=== PATIENT | male | born 1990 | race Caucasian/White ===

== ENCOUNTER 2019-09-08 13:54 | Outpatient (RCR) | payer OTHER, SELFPAY ==
--- NOTE | 2019-09-08 15:27 | PTOPEVAL ---
Thank you for referring this patient to [facility]. Please review, sign, date and return this plan of care ZACHARIAH. I agree with and certify that the following plan of care is medically necessary. Referring Physician Date Admitting Provider: Attending Provider: PHYSICIAN NOT ON STAFF Referring Provider: *PT Outpatient Evaluation Start: 09/08/19 14:08 Freq: Status: Active Protocol: Document 09/08/19 14:08 LUIS (Rec: 09/08/19 14:37 LUIS [id number]) Therapy Assessment Status Assessment Status Assessment Status Evaluation Evaluation Information Problem Diagnosis lumbar pain, L5-S1 fusion Onset 07/09/19 Subjective Information Pt. reports that he initially Query Text:As Reported By Patient/ injured his back after falling Family at work on 07/29/18. He reports that 1 year later underwent spinal surgery to fuse the lower spine. He states that pain is less intense since surgery and feels he can walk longer. He reports that all pain is currently localized and states that he did have pain in the l.e. before surgery but no longer. 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 Prior Level of Function Activity Level (Last 3 Months) Hand Dominance Right Activity of Daily Living Ability Independent Indoor/Home Mobility Independent Community Mobility Independent Stairs Ability Independent Functional Cognition (Planning, Shopping Independent , Taking Medications) Cooking Yes Cleaning Yes Laundry Yes Shopping Yes Driving Yes Comments Additional Prior Level of Function Pt. reports that he is Comments avoiding any heavy lifting. He reports that he has a current 10# weight restriction . Pain Assessment Timing of Pain Assessment Timing of Pain Assessment Pre-Treatment Pain Scale Pain Scale Used Numeric (1 - 10) Self Report Pain Assessment Lower Back Reported Pain Level 4 Pain Description Spasms,Stabbing Current Pain Intensity 4 Lowest Pain Intensity
--- NOTE | 2019-09-17 17:04 | PCPTNOTE ---
patient called and cancelled appt today due to sick child. john
--- NOTE | 2019-10-10 16:46 | PTOPEVAL ---
Thank you for referring this patient to [facility]. Please review, sign, date and return this plan of care ZACHARIAH. I agree with and certify that the following plan of care is medically necessary. Referring Physician Date Admitting Provider: Attending Provider: PHYSICIAN NOT ON STAFF Referring Provider: *PT Outpatient Evaluation Start: 09/08/19 14:08 Freq: Status: Active Protocol: Document 10/08/19 13:30 LUIS (Rec: 10/10/19 16:45 LUIS [email or web address]) Therapy Assessment Status Assessment Status Assessment Status Discharge Pain Assessment Pain Scale Pain Scale Used Numeric (1 - 10) Self Report Pain Assessment Lower Back Reported Pain Level 2 Greatest Pain Intensity 4 Pain Score Pain Score 2: Self Report Cervical and Lumbar Muscle Testing Lumbar Strength Upper Abdominal Strength 4 Good Lower Abdominal Strength 4-Good- Abdominal Obliques 4-Good- Upper Back Extension 3+Fair+ Lower Back Extension 3+Fair+ Lower Extremity Muscle Strength Testing General Lower Extremity Strength Gross Lower Extremity Strength bilateral hip flexion 5/5, bilateral knee extension 5/5, bialteral hip abduction 5/5, bilateral knee flexion 5/5, bilateral ankle dorsiflexion 5 /5 Muscle Length Testing Muscle Length Testing Piriformis w/Hip Flexion >90 Degrees (R) Mild Tightness,(L) Mild Tightness Left Hamstring Length 15 Query Text:(90 - 90 Position) Right Hamstring Length 13 Query Text:(90 - 90 Position) Gait Assessment Gait Assessment Additional Ambulation Comments Pt. ambulates over level surface without deviation. Pt . demonstrates safe body mechanics with lifting 32.5# from floor to waist in repition. He demonstrate verbal and physical knowledge of safe body mechanics. PT Clinical Summary Clinical Summary Protocol: PTEVCODE Clinical Summary Pt. has met the majority of goals established at the initial evaluation. He demonstrates safe lifting mechanics and is performing independent exercise at the gym away from rehab. At this time he has thorough education in safe body mechanics and
== END 2019-10-08 17:19 | disposition home or self-care (01) ==
LOC: CHSPT 13:54
DX: M54.5 Low back pain (principal)
CPT/HCPCS: 97110; 97161; 97530

== ENCOUNTER 2020-01-30 09:53 | Emergency (ER) | payer OTHER, SELFPAY ==
--- NOTE | ~2020-01-30 | CT_ITS ---
EXAMINATION: CT brain wo con DATE: 01/30/2020 10:52 INDICATION: Headache. TECHNIQUE: Computed tomography (CT) of the head was performed without intravenous contrast. The mA wa s adjusted according to patient size. Iterative reconstruction technique was employed. The dose-lengt h product was 681.00 mGy-cm. COMPARISON: None FINDINGS: There is no intracranial hemorrhage, acute infarction, or abnormal intracranial mass lesion . The ventricles are normal in size. There are mucous retention cysts in the maxillary sinuses. The m astoid air cells are normal. The orbits are normal. IMPRESSION: 1. Normal brain. Reviewed, dictated and finalized at location A. IMPRESSION: 1. Normal brain.
[2020-01-30 10:00] VITALS: BP 158/92; PULSE 90; RESP 20; TEMP 36.6; O2SAT 98
--- NOTE | 2020-01-30 10:10 | ED.BACK ---
HPI - Back Pain/Injury General Chief Complaint: Back Pain/Injury Stated Complaint: Vomiting, spinal cord headach Time Seen by Provider: 01/30/20 10:10 Source: patient Mode of arrival: ambulatory Limitations: no limitations History of Present Illness HPI Narrative: 29 year-old Scot comes in today complaining of a headache that gets worse with standing. He states his pain is 5/10 while the supine and 9 on a 10 while standing. Two days ago the patient had a CT myelogram for symptoms resulting from an injury of his lumbar spine 2 years ago. 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 He has had vomiting but no fever, new neurologic symptoms such as weakness, perineal numbness, change in vision, incontinence, change in level of consciousness, or difficulty walking. Patient states he has residual weakness and numbness in his left leg from his spinal injury and subsequent surgery. Procedure was ordered by Dr. Keny Washington at [facility] in [place] ([phone]) and the procedure was done at [facility] ([phone]). according the ladder, his redness fractions after the procedure were to call [facility] [phone]. MD elicited complaint: back pain Pertinent past history: prior back pain Timing: constant Severity: severe Similar Symptoms Previously: No Quality: aching Location: lumbar spine and thoracic spine Radiation: none Exacerbating factors: sitting upright Relieving factors: other (lying supine) Context: other (S/P CT myelogram) Associated symptoms: denies other symptoms Treatments prior to arrival: NSAIDS and acetaminophen Related Data Home Medications Medication Instructions Recorded Confirmed gabapentin 300 mg PO TID 01/30/20 01/30/20 Allergies Allergy/AdvReac Type Severity Reaction Status Date / Time No Known Allergies Allergy Verified 01/30/20 10:15 Review of Systems Constitutional: Constitutional: Denies chills, Denies fever(s) and Denies weakness Eyes: Eyes: Denies change in vision and Denies photophobia ENT: Denies dysphagia, Denies nasal congestion and Denies sore throat Cardiovascular: Cardiovascular: Denies chest pain and Denies radiating jaw, neck or arm pain Respiratory: Respiratory: Denies cough, Denies dyspnea and Denies wheezing Gastrointestinal: Gastrointestinal: Denies abdominal pain, Denies diarrhea, Denies nausea and Reports vomiting Genitourinary: Genitourinary: Denies dysuria, Denies urinary frequency and Denies urinary incontinence Musculoskeletal: Musculoskeletal: Reports back pain, Denies arthralgias, Denies joint swelling and Denies muscle cramps Integumentary/Breasts: Skin/Breast: Denies pruritus, Denies erythema and Denies rash Neurologic: Denies vertigo, Denies dizziness, Denies syncope and Denies focal weakness Psychiatric: Psychiatric: Denies anxiety and Denies depression Hematologic/Lymphatic: Hematologic/Lymphatic: Denies easy bleeding and Denies easy bruising Allergic/Immunologic: Allergic/Immunologic: Denies lip swelling and Denies wheezing PMFSH Surgical History Surgical History H/O lumbosacral spine surgery Social History Social History Smoking status: Never smoker Alcohol intake: never Substance use: never Living arrangements: with family Exam Const: General: healthy appearing and alert Orientation/consciousness: patient oriented x3 Limitations: no limitations Other: moderate acute distress HENMT: Mouth: Yes Normal oral and palatal mucosa present and Yes moist mucous membranes Eyes: Conjunctivae: conjunctivae normal Pupils: Equal, round and reactive pupils present EOM: EOMs intact bilaterally Resp: Effort & Inspection: normal respiratory effort and not labored Auscultation: clear to auscultation bilaterally, no rales, no rhonchi and no wheezes Cardio:
[2020-01-30] MEDS: HYDROMORPHONE HCL 2 MG/ML VIAL 0.5 MG IV PUSH (10:25)
[2020-01-30] MEDS: SODIUM CHLORIDE 0.9% IV 1,000 ML 999 ML IV CONT (10:25)
[2020-01-30] MEDS: ONDANSETRON INJ 4 MG/2 ML VIAL IV PUSH (10:25)
--- NOTE | 2020-01-30 10:54 | PC.NURSE ---
Report given to Brady Yen
[2020-01-30 11:26] VITALS: BP 137/77; PULSE 88; RESP 18; O2SAT 99
== END 2020-01-30 11:48 | disposition home or self-care (01) ==
LOC: CHSED 09:58
PROVIDERS: Emergency Provider Emergency Medicine; PCP Family Medicine
DX: G97.1 Other reaction to spinal and lumbar puncture (principal)
CPT/HCPCS: 70450; 96361; 96374; 96375; 99283; 99284; J1170; J2405; J7030

== ENCOUNTER 2021-06-27 09:58 | Outpatient (RCR) | payer OTHER, SELFPAY ==
--- NOTE | 2021-06-27 11:01 | PTOPEVAL ---
Thank you for referring Mingo Benito to [facility].? The patient is scheduled to be seen for therapy? ____x/week for ___ weeks. Please review, sign, date and return this plan of care ZACHARIAH. I agree with and certify that the following plan of care is medically necessary. Referring Physician Date Admitting Provider: Attending Provider: Catarina Foy, STEFANY Referring Provider: *PT Outpatient Evaluation Start: 06/27/21 09:54 Freq: Status: Active Protocol: Document 06/27/21 09:56 ACR (Rec: 06/27/21 11:01 ACR [id number]) Therapy Assessment Status Assessment Status Assessment Status Evaluation Outpatient Past Medical History Musculoskeletal History Hx Back Injury Yes Hx Back Pain Yes Hx Spinal Surgery Yes: x3 Evaluation Information Problem Diagnosis R arm strain and contusion of thoracic spine Onset 06/11/21 Subjective Information Patient states he was working, Query Text:As Reported By 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 When he was lifting it, it did not get out of the hinge and it bounced back at him which took the wind out of him . 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 He states that his shoulder isn't really bothering him as much as his neck and isn't sure if his neck is effecting his shoulder. Patient states he is on work restrictions where he cannot use your R arm or lift 20#. He states that he got an X-ray, which showed a broken rib. Patient states that his goal for therapy decrease pain and get back to full duty work. 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
--- NOTE | 2021-06-27 12:32 | PTOPEVAL ---
Thank you for referring Mingo Benito to [facility].? The patient is scheduled to be seen for therapy? ____x/week for ___ weeks. Please review, sign, date and return this plan of care ZACHARIAH. I agree with and certify that the following plan of care is medically necessary. Referring Physician Date Admitting Provider: Attending Provider: Catarina Foy, STEFANY Referring Provider: *PT Outpatient Evaluation Start: 06/27/21 09:54 Freq: Status: Active Protocol: Document 06/27/21 09:56 ACR (Rec: 06/27/21 11:01 ACR [email or web address]) Therapy Assessment Status Assessment Status Assessment Status Evaluation Outpatient Past Medical History Musculoskeletal History Hx Back Injury Yes Hx Back Pain Yes Hx Spinal Surgery Yes: x3 Evaluation Information Problem Diagnosis R arm strain and contusion of thoracic spine Onset 06/11/21 Subjective Information Patient states he was working, Query Text:As Reported By 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 When he was lifting it, it did not get out of the hinge and it bounced back at him which took the wind out of him . 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 He states that his shoulder isn't really bothering him as much as his neck and isn't sure if his neck is effecting his shoulder. Patient states he is on work restrictions where he cannot use your R arm or lift 20#. He states that he got an X-ray, which showed a broken rib. Patient states that his goal for therapy decrease pain and get back to full duty work. 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
--- NOTE | 2021-07-08 14:23 | PTOPEVAL ---
Thank you for referring Mingo Benito to [facility].? The patient is scheduled to be seen for therapy? ____x/week for ___ weeks. Please review, sign, date and return this plan of care ZACHARIAH. I agree with and certify that the following plan of care is medically necessary. Referring Physician Date Admitting Provider: Attending Provider: Catarina Foy, HEALTH RESEARCHER-BC Referring Provider: *PT Outpatient Evaluation Start: 06/27/21 09:54 Freq: Status: Active Protocol: Document 07/08/21 13:07 ACR (Rec: 07/08/21 14:22 ACR [email or web address]) Therapy Assessment Status Assessment Status Assessment Status Progress Outpatient Past Medical History Musculoskeletal History Hx Back Injury Yes Hx Back Pain Yes Hx Spinal Surgery Yes: x3 Evaluation Information Problem Diagnosis R arn strain and contusion of thoracic spine Onset 06/11/21 Subjective Information Patient reports that he is not Query Text:As Reported By Patient/ getting much better. He is Family starting to get a heaviness of his R shoulder. He states he is gettng no sleep at all because his shoulder is in so much pain. He continues to get the pain along his neck as well. Patient reports that he is starting to get constant burning down the arm with the tingling. Pain Assessment Timing of Pain Assessment Timing of Pain Assessment Assessment Pain Scale Pain Scale Used Numeric (1 - 10) Self Report Pain Assessment Neck Reported Pain Level 4 Greatest Pain Intensity 7 Right Shoulder(s) Reported Pain Level 4 Greatest Pain Intensity 7 Pain Score Pain Score 4,4: Self Report Interventions Used Interventions Used By Clinicians Activity or ADL's,Electrical Stimulation,Exercise,Heat Cervical and Lumbar ROM Cervical ROM Cervical Flexion (0-60) 43 Query Text:Active in Degrees Cervical Extension (0-70) 42 Query Text:Active in Degrees Cervical Lateral Flexion Right (0-50) 43 Query Text:Active in Degrees Cervical Lateral Flexion Left (0-50) 41 Query Text:Active in Degrees Cervical Rotation Right (0-90) 86 Query Text:Active in Degrees Cervical Rotation Left (0-90) 83 Query Text:Active in Degrees Upper Extremity Muscle Strength Testing General Upper Extremity Strength Gross Upper Extremity Strength Comments 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
== END 2021-07-08 23:59 | disposition home or self-care (01) ==
LOC: CHSPT 09:58
PROVIDERS: Visit Provider Nurse Practitioner
DX: S46.911A Strain of unspecified muscle, fascia and tendon at shoulder and upper arm level, right arm, initial encounter (principal); S20.229A Contusion of unspecified back wall of thorax, initial encounter
CPT/HCPCS: 97014; 97110; 97140; 97161; G0283

== ENCOUNTER 2021-11-25 12:27 | Emergency (ER) | payer OTHER, SELFPAY ==
--- NOTE | ~2021-11-25 | XR_ITS ---
XR chest 1V portable DATE: 11/25/2021 13:20 INDICATION: Chest pain, shortness of breath, dizziness. Tachycardia. TECHNIQUE: Portable AP chest on 11/25/2021 1321 hours COMPARISON: None FINDINGS: Normal heart size. No hilar or mediastinal enlargement. There is moderate elevation right leaf of the diaphragm. No pulmonary infiltrate or consolidation, pl eural effusion or pulmonary vascular congestion or pneumothorax. IMPRESSION: No active cardiopulmonary disease Moderate elevation right diaphragm Reviewed, dictated and finalized at location A.
--- NOTE | 2021-11-25 12:51 | ECG_ITS ---
Measurements Intervals [place] Rate: 131 P: 51 VT: 156 QRS: 89 QRSD: 81 T: 53 QT: 286 QTc: 422 Interpretive Statements SINUS TACHYCARDIA INDETERMINATE AXIS BORDERLINE ECG NO PREVIOUS ECG AVAILABLE FOR COMPARISON Electronically Signed On 11-25-2021 16:11:27 CDT by Ascencion Gambino M.D.
[2021-11-25 12:54] VITALS: BP 144/102; PULSE 144; RESP 20; TEMP 36.7; O2SAT 97
--- NOTE | 2021-11-25 13:04 | ED.GENADULT ---
HPI - General Adult General Chief complaint: Shortness of Breath/Dyspnea Stated complaint: left sided abd pain sob Source: patient Mode of arrival: ambulatory Limitations: no limitations History of Present Illness HPI narrative: Raisa is a 31M with a PMH of multiple back surgeries that presented to the ED with N/V, abdominal and chest pain. He just got over a flu like illness about 5 days ago. However, early this morning he woke up with left sided abdominal pain, some left chest pain and had multiple episodes of non bloody vomit and watery diarrhea. He denies any lightheadedness. It is cramping left sided abdominal pain and pain in the left chest. He has been exposed to covid and flu. No recent antibiotic use noted. Related Data Home Medications Medication Instructions Recorded Confirmed No Home Medications 11/25/21 11/25/21 Allergies Allergy/AdvReac Type Severity Reaction Status Date / Time No Known Allergies Allergy Verified 11/25/21 12:53 Review of Systems Constitutional: Constitutional: Denies chills, Reports fatigue and Denies fever(s) Eyes: Eyes: Reports no additional eye complaints ENT: Reports system reviewed and no additional complaints, except as documented Cardiovascular: Cardiovascular: Reports chest pain, Reports rapid heart rate and Denies radiating jaw, neck or arm pain Respiratory: Respiratory: Reports no additional respiratory complaints Gastrointestinal: Gastrointestinal: Reports as per HPI Genitourinary: Genitourinary: Reports no additional male genitourinary complaints Integumentary/Breasts: Skin/Breast: Reports system reviewed and no additional complaints, except as docu Neurologic: Reports system reviewed and no additional complaints, except as documented Psychiatric: Psychiatric: Reports no additional psychiatric complaints Endocrine: Endocrine: Reports no additional endocrine complaints Hematologic/Lymphatic: Hematologic/Lymphatic: Reports no additional hematologic/lymphatic complaints Allergic/Immunologic: Allergic/Immunologic: Reports no additional allergic/immunologic complaints [facility] Surgical History Surgical History H/O lumbosacral spine surgery Social History Social History Smoking status: Never smoker Alcohol intake: never Substance use: never Exam Const: General: no acute distress and alert Orientation/consciousness: patient oriented x3 Limitations: No altered mental status HENMT: Head: normal to inspection Other: atraumatic Eyes: Conjunctivae: conjunctivae normal Pupils: Equal, round and reactive pupils present Neck: Neck: normal visual inspection Chest: Chest palpation & inspection: normal inspection of the chest Resp: Effort & Inspection: normal respiratory effort, not labored and not tachypneic Auscultation: clear to auscultation bilaterally Cardio: Rate: tachycardic Rhythm: regular rhythm Heart sounds: no murmurs GI: Inspection: non-distended GI Palp: Yes Soft to palpation, Yes Tenderness to palpation present (GI) (left upper and lower quadrant), No Guarding due to palpation present (GI), No Rigid due to palpation and No Palpable mass present Auscultation: normal bowel sounds : General: Yes no CVA tenderness Urinary Catheter: Urinary Catheter: patent and draining Skin: General skin exam: normal color Rashes: no rashes Neuro: General: patient oriented x3 and moves all extremities Extrem: General: normal to inspection Psych: Appearance: grossly normal Mental Status: mental status grossly normal Course Course Emergency Course: Ordered labs and ekg EKG showed NSR with a rate of 131. 2L of NS were ordered which brought the HR down to 115. He had no diarrhea or vomiting in the ED. Labs showed a high Hgb and liver enzymes but were otherwise unremarkable for acute pathology. His CP resolved while in the ED. His
[2021-11-25] MEDS: SODIUM CHLORIDE 0.9% IV 1,000 ML 999 ML IV CONT ×2 (13:12→13:50)
--- NOTE | 2021-11-25 13:13 | PC.NURSE ---
Pt aware of UA order, but states that he cannot go to the bathroom at this time. IVF infusing and urinal at bedside. Pt will notify staff when he is able to provide urine sample.
[2021-11-25 13:18] LABS: Basophils Absolute Auto 0.04 K/mm3 (0.00-0.10); Basophils Percent Auto 0.3 % (0.0-1.0); Eosinophils Absolute Auto 0.04 K/mm3 (0.02-0.50); Eosinophils Percent Auto 0.3 % (1.0-6.0); Hematocrit 54.2 % (40.0-54.0); Hemoglobin 19.2 g/dL (14.0-18.0); Immature Granulocyte Absolute 0.03 K/mm3 (0.00-0.00); Immature Granulocyte Percent A 0.2 % (0.0-0.0); Lymphocytes Absolute Auto 0.71 K/mm3 (1.10-4.50); Lymphocytes Percent Auto 4.8 % (18.0-42.0); Mean Corpuscular HGB Conc 35.4 g/dL (32.0-36.0); Mean Corpuscular Hemoglobin 30.2 pg (27.0-31.0); Mean Corpuscular Volume 85.2 fL (78.0-102.0); Mean Platelet Volume 8.9 fl (8.7-11.0); Monocytes Absolute Auto 0.51 K/mm3 (0.10-0.90); Monocytes Percent Auto 3.4 % (2.0-11.0); Neutrophils Absolute Auto 13.5 K/mm3 (1.7-7.2); Platelet Count Result 391 K/mm3 (150-420); Red Blood Count 6.36 M/mm3 (4.70-6.10); Red Cell Distribution Width 12.1 % (11.6-14.4); White Blood Count 14.8 K/mm3 (4.8-10.8)
[2021-11-25 13:29] VITALS: BP 139/78; PULSE 119; RESP 21; O2SAT 96
[2021-11-25 13:32] LABS: D Dimer 0.23 mg/L (0.19-0.50)
[2021-11-25 13:37] LABS: Influenza Control Valid (Valid)
[2021-11-25 13:37] LABS: SARS-CoV-2 Ag Negative (Negative)
[2021-11-25 13:39] LABS: Lactic Acid Reflex 1.1 mmol/L (0.4-2.0)
[2021-11-25 13:47] LABS: Alanine Aminotransferase 136 U/L (16-63); Albumin Level 4.5 g/dL (3.4-5.0); Alkaline Phosphatase 106 U/L (46-116); Anion Gap 15 mmol/L (8-16); Aspartate Amino Transferase 56 U/L (15-37); Blood Urea Nitrogen 20 mg/dL (7-18); CRP 0.7 mg/dL (0.0-0.9); Calcium 9.1 mg/dL (8.5-10.1); Carbon Dioxide 21 mmol/L (21-32); Chloride 103 mmol/L (98-108); Estimated CRCL calculation 148 ml/min; Estimated Glomerular Filt Rate > 60; Glucose 113 mg/dL (70-99); Lipase 52 U/L (73-393); Magnesium 1.6 mg/dL (1.8-2.4); NT Pro B Type Natriuretic Pept < 11 pg/mL (0-125); Osmolality Calculated 291 mOsm/kg (285-295); Potassium 4.5 mmol/L (3.5-5.1); Sodium 139 mmol/L (136-145); Thyroid Stimulating Hormone 1.05 uIU/mL (0.36-3.74); Total Protein 8.8 g/dL (6.4-8.2); Troponin I 4.2 ng/L (0.00-60.4)
--- NOTE | 2021-11-25 13:51 | PC.NURSE ---
Pt given ice chips per his request. Pt still unable to provide urine sample.
[2021-11-25 14:18] LABS: Appearance Urine Clear (Clear); Bilirubin Urine 1+ (Negative); Color Urine Yellow (Yellow); Glucose Urine UA Negative (Negative); Ketones Urine 1+ (Negative); Leukocyte Esterase Ur Negative (Negative); Nitrate Urine Negative (Negative); Protein Urine 3+ (Negative); Specific Grav Ur >= 1.030 (1.010-1.020); Urobilinogen Urine 0.2 mg/dL (0.2-1.0); pH Urine 5.5 (5.0-8.0)
[2021-11-25 14:26] LABS: Add Urine Microscopic? YES; Bacteria Urine None seen /hpf; Blood Urine Trace-Intact (Negative); Mucus Urine Moderate /lpf; RBC Urine 0-2 /hpf (0-2); Squamous Epithelial Cell Urine Rare /hpf (Few); WBC Urine 0-3 /hpf (0-3)
[2021-11-25 14:27] LABS: Amphetamine Screen Urine Negative (Negative); Barbiturate Screen Urine Negative (Negative); Benzodiazepines Screen Urine Negative (Negative); Cannabinoid Screen Urine Negative (Negative); Cocaine Screen Urine Negative (Negative); Methadone Screen Urine Negative (Negative); Opiate Screen Urine Negative (Negative)
[2021-11-25 14:38] VITALS: BP 119/75; PULSE 109; RESP 20; O2SAT 98
== END 2021-11-25 14:39 | disposition home or self-care (01) ==
PROVIDERS: Emergency Provider Family Medicine; PCP Physician Assistant
DX: K52.9 Noninfective gastroenteritis and colitis, unspecified (principal); R74.01 Elevation of levels of liver transaminase levels; D58.2 Other hemoglobinopathies; R00.0 Tachycardia, unspecified; Z20.822 Contact with and (suspected) exposure to COVID-19
CPT/HCPCS: 36415; 71045; 80053; 80307; 81001; 83605; 83690; 83735; 83880; 84443; 84484; 85025; 85380; 86140; 87426; 87804; 93005; 96360; 99283; C9803; J7030

== ENCOUNTER 2022-11-23 11:18 | Emergency (ER) | payer SELFPAY ==
[2022-11-23] VITALS (22 sets, daily range): BP systolic 151–174; BP diastolic 86–109; PULSE 102–123; RESP 15–23; TEMP 36.6; O2SAT 96–99
--- NOTE | ~2022-11-23 | XR_ITS ---
EXAMINATION: XR chest 1V portable DATE: 11/23/2022 11:55 INDICATION: Stroke symptoms with left-sided hemiparesis TECHNIQUE: frontal view of the chest was obtained. COMPARISON: Chest radiograph dated 11/25/2021 FINDINGS: Unchanged chronic elevation the right hemidiaphragm. No focal airspace opacities, pulmonary edema, pl eural effusion or pneumothorax. The cardiomediastinal silhouette is normal. IMPRESSION: 1. Chronic elevation the right hemidiaphragm. No other acute cardiopulmonary disease. Reviewed, dictated and finalized at location A. IMPRESSION: 1. Chronic elevation the right hemidiaphragm. No other acute cardiopulmonary di sease.
--- NOTE | ~2022-11-23 | CT_ITS ---
EXAMINATION: CT brain wo con INDICATION: Left-sided weakness COMPARISON: 01/30/2020 TECHNIQUE: Standard unenhanced head CT. The dose-length product (DLP) was 681.00 mGy-cm. The mA was a djusted according to patient size. Iterative reconstruction technique was employed. FINDINGS: There is no intracranial hemorrhage, acute infarction, or abnormal mass lesion. The ventric les are normal. There is no abnormal mass effect or midline shift. The pena-white matter differentiat ion is normal. The basal cisterns are patent. The orbits are normal. There is mild mucosal thickening of the paranasal sinuses. IMPRESSION: 1. No acute intracranial abnormality. As per stroke protocol, I called these results to the Emergency Department, and discussed with Dr. Miya Seo MD at 1138 hours on 11/23/2022. Reviewed, dictated and finalized at location L. IMPRESSION: 1. No acute intracranial abnormality. As per stroke protocol, I called these results to the Emergency Department, and discussed with Dr. Yoan Seo MD at 1138 hours on 11/23/2022.
--- NOTE | ~2022-11-23 | CT_ITS ---
CT ANGIOGRAM NECK AND HEAD History: CVA, left-sided weakness. Technique: Serial spiral axial images through the head and neck were obtained during arterial phase I V injection of 100 cc of Omnipaque 350. 3-D postprocessing and MIP images were then reconstructed on the remote workstation. Dose reduction technique was used on this scan by utilizing automated exposur e control and iterative reconstruction technique. The dose-length product (DLP) was 849.71 mGy-cm. CTA neck findings: Bilateral vertebral arteries are patent. Bilateral common carotid, internal carot id, and external carotid arteries are patent. No stenosis or large vessel occlusion. No aneurysm. The proximal right internal carotid artery demonstrates 0% stenosis relative to the normal distal artery lumen diameter. The proximal left internal carotid artery demonstrates 0% stenosis relative to the n ormal distal artery lumen diameter. CTA head findings: Distal vertebral arteries, basilar artery, and posterior cerebral arteries are pat ent. Distal internal carotid arteries, middle cerebral arteries, and anterior cerebral arteries are p atent. No large vessel occlusion. No stenosis or aneurysm. Impression: Unremarkable CTA of the head and neck. Reviewed, dictated and finalized at location M. Impression: Unremarkable CTA of the head and neck.
--- NOTE | 2022-11-23 11:29 | ECG_ITS ---
Measurements Intervals [place] Rate: 108 P: 67 MS: 132 QRS: 53 QRSD: 102 T: -16 QT: 323 QTc: 435 Interpretive Statements SINUS TACHYCARDIA CONSIDER INFERIOR INFARCT, AGE INDETERMINATE BASELINE ARTIFACT- II, III, AVR, AVF ABNORMAL ECG COMPARED TO ECG 11/25/2021 13:00:52 MYOCARDIAL INFARCT FINDING NOW PRESENT Electronically Signed On 11-23-2022 11:55:42 CDT by Liborio Vera D.O.
[2022-11-23 11:34] LABS: Glucose Point of Care 88 mg/dl (65-105)
[2022-11-23 11:35] LABS: Basophils Absolute Auto 0.02 K/mm3 (0.00-0.10); Basophils Percent Auto 0.2 % (0.0-1.0); Eosinophils Absolute Auto 0.05 K/mm3 (0.02-0.50); Eosinophils Percent Auto 0.4 % (1.0-6.0); Hematocrit 47.5 % (40.0-54.0); Hemoglobin 16.9 g/dL (14.0-18.0); Immature Granulocyte Absolute 0.03 K/mm3 (0.00-0.00); Immature Granulocyte Percent A 0.3 % (0.0-0.0); Lymphocytes Absolute Auto 2.33 K/mm3 (1.10-4.50); Lymphocytes Percent Auto 19.7 % (18.0-42.0); Mean Corpuscular HGB Conc 35.6 g/dL (32.0-36.0); Mean Corpuscular Volume 84.2 fL (78.0-102.0); Mean Platelet Volume 9.1 fl (8.7-11.0); Monocytes Absolute Auto 0.72 K/mm3 (0.10-0.90); Monocytes Percent Auto 6.1 % (2.0-11.0); Neutrophils Absolute Auto 8.7 K/mm3 (1.7-7.2); Neutrophils Percent Auto 73.3 % (50.0-70.0); Platelet Count Result 384 K/mm3 (150-420); Red Blood Count 5.64 M/mm3 (4.70-6.10); Red Cell Distribution Width 12.9 % (11.6-14.4); White Blood Count 11.8 K/mm3 (4.8-10.8)
[2022-11-23 11:44] LABS: INR 1.1; Partial Thromboplastin Time 25.9 SEC (23.90-30.70); Prothrombin Time 11.5 Seconds (9.50-12.10)
[2022-11-23 11:50] LABS: Alanine Aminotransferase 109 U/L (16-63); Albumin Level 4.1 g/dL (3.4-5.0); Alkaline Phosphatase 100 U/L (46-116); Anion Gap 10 mmol/L (8-16); Aspartate Amino Transferase 38 U/L (15-37); Bilirubin,Total 0.8 mg/dL (0.00-1.00); Blood Urea Nitrogen 12 mg/dL (7-18); Calcium 9.1 mg/dL (8.5-10.1); Carbon Dioxide 28 mmol/L (21-32); Chloride 105 mmol/L (98-108); Estimated Glomerular Filt Rate > 60; Glucose 107 mg/dL (70-99); Osmolality Calculated 295 mOsm/kg (285-295); Potassium 4.5 mmol/L (3.5-5.1); Sodium 143 mmol/L (136-145); Total Protein 8.3 g/dL (6.4-8.2); Troponin I 5.6 ng/L (0.00-60.4)
[2022-11-23 11:52] LABS: Ethanol < 3 mg/dL (0-6)
[2022-11-23 12:29] LABS: Base Excess ABG 1.1 mmol/L (0-2); HCO3 ABG 25.5 mmol/L (23-29); Oxygen Content ABG 21.6 %vol (16.0-22.0); Oxygen Saturation ABG 93.6 % (95-97); Oxyhemoglobin 92.3 % (94-100); PCO2 ABG 39.7 mmHg (35-45); PO2 ABG 63.5 mmHg (80-90); Total Hemoglobin 16.7 g/dL (12.0-18.0); pH ABG 7.43 (7.35-7.45)
[2022-11-23 12:30] LABS: Carboxyhemoglobin 1.2 % (0-1.5); Methemoglobin ABG 0.2 % (0-1.5); Reduced Hemoglobin 6.3 % (0-1.5)
[2022-11-23 12:31] LABS: Device ROOM AIR; Modified Allen's Test Pass; Site Drawn RIGHT RADIAL
--- NOTE | 2022-11-23 13:01 | ED.AMS ---
HPI - Altered Mental Status General Chief Complaint: Altered Mental Status Stated Complaint: stroke like symptoms Time Seen by Provider: 11/23/22 11:22 Source: patient, family and EMS Mode of arrival: EMS Limitations: language barrier, altered mental status, physical limitation and clinical condition History of Present Illness HPI narrative: this is a 32-year-old gentleman that presented via EMS with stroke-like symptoms with some dysarthria and visual disturbance with left lower extremity weakness started around little after 10 this morning after the patient stated that he did not feel very well and called his and she subsequently called EMS and was brought directly to the emergency department the patient has some left leg weakness. The patient was in his normal state is was alert and oriented and speaking to his he had a scan performed not too long ago and was told there could be evidence of Chiari malformation. Currently his vital signs are stable blood pressure is mildly elevated at 170 3/102 O2 sats are 96% on room air with no respiratory distress patient is alert and responds appropriately although he does have dysarthria and slurred speech. No recent surgeries no hemorrhagic diathesis. MD complaint: altered mental status and weakness Onset (ago): hour(s) Time: 10:00 Timing confirmed by: spouse Severity: severe Consistency of symptoms: constant Associated symptoms: denies other symptoms Related Data Home Medications Medication Instructions Recorded Confirmed No Home Medications 11/25/21 11/25/21 Allergies Allergy/AdvReac Type Severity Reaction Status Date / Time No Known Allergies Allergy Verified 11/25/21 12:53 Review of Systems Review of Systems: All systems reviewed & are unremarkable except as noted in HPI and below PMFSH Past Medical History Medical History Patient denies medical problems Surgical History Surgical History H/O lumbosacral spine surgery Social History Social History Smoking status: Never smoker Alcohol intake: never Substance use: never Living arrangements: with family Exam Const: General: healthy appearing and no acute distress Limitations: no limitations HENMT: Head: normal to inspection Mouth: Yes Normal oral and palatal mucosa present Eyes: Conjunctivae: conjunctivae normal Direct Ophthalmoscopy: no photophobia Neck: Neck: normal visual inspection, no lymphadenopathy and no meningeal signs Chest: Chest palpation & inspection: normal inspection of the chest Resp: Effort & Inspection: normal respiratory effort Auscultation: clear to auscultation bilaterally Cardio: Rate: tachycardic Rhythm: regular rhythm GI: GI Palp: Yes Soft to palpation Auscultation: normal bowel sounds : General: Yes bladder normal to palpation Urinary Catheter: Urinary Catheter: patent and draining Back/Spine/Pelvis: Back: no CVA tenderness Skin: General skin exam: normal color Rashes: no rashes Wounds: no wounds Neuro: General: patient oriented x3 Other: no arm drift, has left leg weakness with dysarthria and facial droop. Extrem: General: normal to inspection and no pedal edema Psych: Mental Status: mental status grossly normal Attitude: cooperative Course Course Emergency Course: CT scan of the brain shows no acute intracranial abnormalities, CTA of brain and neck showed no arterial occlusion, labs reviewed with patient last known surgery lumbar spine 2 years ago, currently not on any blood thinners his INR is 1.1. The patient is a candidate for thrombolytics and spoke to Neurology at [facility] and he is appropriate candidate for tPA. Neurologist at [facility] accepted patient for transfer. EKG shows sinus tachy at about 108 blood pressure 168/100. Patient had a NIH stroke scale about 10. Linda
--- NOTE | 2022-11-23 16:17 | PC.NURSE ---
On 11/23/22, the student, [sarah young ], provided care and completed [facility] documentation on this patient. I have reviewed the student's documentation and agree with the findings.
== END 2022-11-23 15:45 | disposition short-term general hospital (02) ==
PROVIDERS: Emergency Provider Emergency Medicine
DX: I63.9 Cerebral infarction, unspecified (principal)
CPT/HCPCS: 36415; 36600; 70450; 70496; 70498; 71045; 80053; 80307; 82375; 82805; 82948; 83050; 84484; 85025; 85610; 85730; 93005; 96365; 99283; 99285; J2997; Q9967

== ENCOUNTER 2023-10-12 16:50 | Outpatient (RCR) | payer OTHER, SELFPAY ==
[2023-10-12 17:06] VITALS: BP_SYST 170
--- NOTE | 2023-10-16 07:45 | OPREHPOC ---
Outpatient Therapy Plan of Care This is a Multidisciplinary Plan of Care that may contain components documented by all disciplines (PT, OT, and ST.) PT Problem 1 PT Problem #1 Knowledge Deficit PT Goal 1 Goal Patient to demonstrate independence with HEP Target Visit 4 PT Problem 2 PT Problem #2 Pain PT Goal 1 Goal 1. Patient to return to work with no increase in R shoulder pain 2. Patient to report to highest pain at 2/10 Target Visit 8 PT Problem 3 PT Problem #3 Impaired Range of Motion PT Goal 1 Goal Patient to demonstrate 160 deg of R shoulder flexion and abduction active ROM to return to reaching over head for work duties. Target Visit 8 PT Problem 4 PT Problem #4 Impaired Strength PT Goal 1 Goal 1. Patient to demonstrate 5/5 strength of the R shoulder 2. Patient to lift 50# from floor to waist with no reports of R shoulder pain for return to work Target Visit 8 PT Problem 5 PT Problem #5 Impaired Functional Mobil PT Goal 1 Goal 1. Patient to score 20% improvement on Quick Dash 2. Patient to demonstrate ability to lift 10# overhead with no increase in pain. Target Visit 8
--- NOTE | 2023-10-16 07:45 | BUPTOPEVAL1 ---
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 He works at [employer]. He reports he also had a C3-C4 injury that resulted in a fusion in December of 2022. He reports he continued to have R shoulder pain and had surgery on 09/27/23 with R shoulder arthroscopy, extensive debridement and open subpectoralis bicep tenodesis . He reports he was in a sling for 2 days consistently and then has been weaning out the sling since. He has difficulty with lifting, push, and pulling. He reports he did also have an infection at the incisional site but has been on an antibiotic. RTMD on 10/15/23 Reported Pain Level Pain Score 1: Self Report Assessment PT Clinical Summary Mr. Benito is a 33 year old male who presents to PT with R shoulder pain following arthroscopy, extensive debridement, and subpectoralis bicep tenodesis. 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 He would benefit from skilled PT to address impairments and return to PLOF. Plan of Care Interventions Electrical Stimulation,Gait Training,Hot Pack/Cold Pack,Manual Therapy,Mechanical Traction,Neuro Re- education,Patient/Caregiver Educati,Therapeutic Activities,Therapeutic Exercise PT Services Indicated Yes Treatment Frequency and 2x weekly for 8 visits Duration These treatments will address the objective and functional deficits as defined above. The patient will be advanced safely and appropriately in order for the patient to progress towards his/her prior level of function. Additional exercises will be introduced and as well as a comprehensive home exercise program upon discharge, if needed, ?to ensure carryover of functional gains achieved in the clinic. This treatment plan has been reviewed and agreement upon by the patient.
--- NOTE | 2023-10-19 14:05 | PCPTNOTE ---
Patient cancelled session due to weather.
--- NOTE | 2023-11-16 14:23 | OPREHPOC ---
Outpatient Therapy Plan of Care This is a Multidisciplinary Plan of Care that may contain components documented by all disciplines (PT, OT, and ST.) PT Problem 1 PT Problem #1 Knowledge Deficit PT Goal 1 Goal Patient to demonstrate independence with HEP Target Visit 4 Progress Met PT Problem 2 PT Problem #2 Pain PT Goal 1 Goal 1. Patient to return to work with no increase in R shoulder pain 2. Patient to report to highest pain at 2/10 Target Visit 16 Progress Not Met PT Problem 3 PT Problem #3 Impaired Range of Motion PT Goal 1 Goal Patient to demonstrate 160 deg of R shoulder flexion and abduction active ROM to return to reaching over head for work duties. met Target Visit 8 Progress Met PT Goal 2 Goal 1. patient to achieve 90 degrees active R shoulder ER 2. patient to achieve 80 degrees active R shoulder IR Target Visit 16 PT Problem 4 PT Problem #4 Impaired Strength PT Goal 1 Goal 1. Patient to demonstrate 5/5 strength of the R shoulder 2. Patient to lift 50# from floor to waist with no reports of R shoulder pain for return to work Target Visit 16 Progress Not Met PT Problem 5 PT Problem #5 Impaired Functional Mobil PT Goal 1 Goal 1. Patient to score 20% improvement on Quick Dash 2. Patient to demonstrate ability to lift 10# overhead with no increase in pain. Target Visit 16 Progress Not Met
--- NOTE | 2023-11-16 14:23 | PTOPREEVAL ---
Assessment and note entered by JT File, PT Evaluation Information Assessment Status Re-evaluation Diagnosis R shoulder pain Onset 09/27/23 Subjective Information patient reports he is doing better, but still has good days and bad days with the R shoulder. he reports it feels stiff today. he is 6 weeks post op. Assessment PT Clinical Summary mr. wilkins presents to skilled PT services for his 8th visit. he presents with improved ROM of the R shoulder. he continues to be restricted from strengthening yet of the R shoulder per his post operative protocol. continued skilled PT is indicated to progress along his protocol and improve his strength to be able to return to his prior level work performance and duties. 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 he has met HEP and initial rom goals today. new rom goals added today , and we will continue to work towards strength, pain, and functional goals. Plan of Care Interventions Electrical Stimulation,Gait Training,Hot Pack/Cold Pack,Manual Therapy,Mechanical Traction,Neuro Re- education,Patient/Caregiver Educati,Therapeutic Activities,Therapeutic Exercise PT Services Indicated Yes Treatment Frequency and continue skilled PT 2x weekly for 8 more visits Duration These treatments will address the objective and functional deficits as defined above. The patient will be advanced safely and appropriately in order for the patient to progress towards his/her prior level of function. Additional exercises will be introduced and as well as a comprehensive home exercise program upon discharge, if needed, ?to ensure carryover of functional gains achieved in the clinic. This treatment plan has been reviewed and agreement upon by the patient.
--- NOTE | 2023-11-21 15:31 | PCPTNOTE ---
Patient cancelled session due to illness.
--- NOTE | 2023-12-17 16:51 | OPREHPOC ---
Outpatient Therapy Plan of Care This is a Multidisciplinary Plan of Care that may contain components documented by all disciplines (PT, OT, and ST.) PT Problem 1 PT Problem #1 Knowledge Deficit PT Goal 1 Goal Patient to demonstrate independence with HEP Target Visit 4 Progress Met PT Problem 2 PT Problem #2 Pain PT Goal 1 Goal 1. Patient to return to work with no increase in R shoulder pain 2. Patient to report to highest pain at 2/10 Target Visit 16 Progress Partially Met Comment has not returned to work PT Problem 3 PT Problem #3 Impaired Range of Motion PT Goal 1 Goal Patient to demonstrate 160 deg of R shoulder flexion and abduction active ROM to return to reaching over head for work duties. met Target Visit 8 Progress Met PT Goal 2 Goal 1. patient to achieve 90 degrees active R shoulder ER 2. patient to achieve 80 degrees active R shoulder IR Target Visit 16 Progress Met Comment . PT Problem 4 PT Problem #4 Impaired Strength PT Goal 1 Goal 1. Patient to demonstrate 5/5 strength of the R shoulder 2. Patient to lift 50# from floor to waist with no reports of R shoulder pain for return to work Target Visit 16 Progress Met Comment . PT Problem 5 PT Problem #5 Impaired Functional Mobil PT Goal 1 Goal 1. Patient to score 20% improvement on Quick Dash 2. Patient to demonstrate ability to lift 10# overhead with no increase in pain. Target Visit 16 Progress Met Comment . PT Goal 2 Goal 1. Patient to demonstrate ability to lift 15# over head for 10 reps 2. Patient to demonstrate ability to lift
--- NOTE | 2023-12-17 16:51 | PTOPREEVAL ---
Assessment and note entered by Nighat Varghese DPT Evaluation Information Assessment Status Evaluation Diagnosis R shoulder pain Onset 09/27/23 Subjective Information patient reports that overall shoulder is much better. he reports sleeping has also improved. he reports he is not waking due to shoulder pain. he reports at this time he would be able to return to work. 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 He reports he returns to MD on 12/19/23. Reported Pain Level Pain Score 0: Self Report Assessment PT Clinical Summary Mr. Benito has been seen for 16 visits of skilled PT with great progress towards goals. Patient has met goals for strength, ROM and pain but has not returned to work. New goal added today for increased repetitions of lifting for full functional lifting for return to full duty. Patient demonstrates 170 deg of R shoulder flexion and 172 deg of R should abduction. He demonstrates 5/5 strength of the R shoulder. He returns to MD on 12/18 and will be progressed per MD recommendations. Plan of Care Interventions Electrical Stimulation,Gait Training,Hot Pack/Cold Pack,Manual Therapy,Mechanical Traction,Neuro Re- education,Patient/Caregiver Educati,Therapeutic Activities,Therapeutic Exercise PT Services Indicated Yes Treatment Frequency and continue skilled PT as directed by MD Duration These treatments will address the objective and functional deficits as defined above. The patient will be advanced safely and appropriately in order for the patient to progress towards his/her prior level of function. Additional exercises will be introduced and as well as a comprehensive home exercise program upon discharge, if needed, ?to ensure carryover of functional gains achieved in the clinic. This treatment plan has been reviewed and agreement upon by the patient.
== END 2024-01-10 14:10 | disposition still patient (30) ==
LOC: CHSPT 16:50
DX: Z48.89 Encounter for other specified surgical aftercare (principal); Z48.817 Encounter for surgical aftercare following surgery on the skin and subcutaneous tissue
CPT/HCPCS: 97110; 97150; 97161; 97530

== ENCOUNTER 2024-01-11 14:12 | Outpatient (RCR) | payer OTHER, SELFPAY ==
[2024-01-11 14:11] VITALS: BP_SYST 170
--- NOTE | 2024-01-11 17:45 | OPREHPOC ---
Outpatient Therapy Plan of Care This is a Multidisciplinary Plan of Care that may contain components documented by all disciplines (PT, OT, and ST.) PT Problem 1 PT Problem #1 Knowledge Deficit PT Goal 1 Goal Patient to demonstrate independence with HEP Target Visit 4 Progress Met PT Problem 2 PT Problem #2 Pain PT Goal 1 Goal 1. Patient to return to work with no increase in R shoulder pain 2. Patient to report to highest pain at 2/10 Target Visit 16 Progress Not Met Comment has not returned to work Comment has not returned to work PT Problem 3 PT Problem #3 Impaired Range of Motion PT Goal 1 Goal Patient to demonstrate 160 deg of R shoulder flexion and abduction active ROM to return to reaching over head for work duties. met Target Visit 8 Progress Met PT Goal 2 Goal 1. patient to achieve 90 degrees active R shoulder ER 2. patient to achieve 80 degrees active R shoulder IR Target Visit 16 Progress Met Comment . Comment . PT Problem 4 PT Problem #4 Impaired Strength PT Goal 1 Goal 1. Patient to demonstrate 5/5 strength of the R shoulder 2. Patient to lift 50# from floor to waist with no reports of R shoulder pain for return to work Target Visit 16 Progress Met Comment . Comment . PT Problem 5 PT Problem #5 Impaired Functional Mobil PT Goal 1 Goal 1. Patient to score 20% improvement on Quick Dash 2. Patient to demonstrate ability to lift 10# overhead with no increase in pain. Target Visit 16 Progress Met Comment . Ambrosio
--- NOTE | 2024-01-11 17:45 | PTOPREEVAL ---
Assessment and note entered by Nighat Varghese DPT Evaluation Information Assessment Status Re-evaluation Diagnosis R shoulder pain Onset 09/27/23 Subjective Information patient reports his shoulder is doing well and he is ready to return to work. he reports there is nothing that he is really concerned about doing when he returns to work. he reports he is independent with HEP and returns to MD on 01/16/24 Reported Pain Level Pain Score 0: Self Report Pain Score 0,6: Self Report Assessment PT Clinical Summary Mr. Benito has attended 22 visits of skilled PT with great progression toward goals and progressed appropriately with protocol. He met all goals set except for return to work and is hopefully to return following MD appointment on 01/16/24. He has been able to lift 15# overhead and 50# from floor to waist with no increase in shoulder pain. He has 170 deg of both R shoulder flexion and abduction active ROM. He returns to MD and will be discharged from PT unless otherwise instructed by MD. Plan of Care Interventions Therapeutic Exercise,Patient/Caregiver Educati, Manual Therapy,Neuro Re-education,Therapeutic Activities,Hot Pack/Cold Pack,Mechanical Traction, Electrical Stimulation,Gait Training PT Services Indicated No Treatment Frequency and DC unless instructed otherwise by MD Duration These treatments will address the objective and functional deficits as defined above. The patient will be advanced safely and appropriately in order for the patient to progress towards his/her prior level of function. Additional exercises will be introduced and as well as a comprehensive home exercise program upon discharge, if needed, ?to ensure carryover of functional gains achieved in the clinic. This treatment plan has been reviewed and agreement upon by the patient.
== END 2024-01-11 20:00 | disposition home or self-care (01) ==
LOC: CHSPT 14:12
DX: Z48.89 Encounter for other specified surgical aftercare (principal); Z48.817 Encounter for surgical aftercare following surgery on the skin and subcutaneous tissue
CPT/HCPCS: 97110; 97150; 97530